=== PATIENT | female | born 1950 | race Caucasian/White ===

== ENCOUNTER 2017-06-02 08:29 | Outpatient (CLI) | payer OTHER | END 2017-06-02 18:19 | disposition home or self-care (01) | LOC: SMA 08:29 | PROVIDERS: ATTEND Physician Assistant Medical | DX: N63.10 Unspecified lump in the right breast, unspecified quadrant (principal); N63.20 Unspecified lump in the left breast, unspecified quadrant | CPT/HCPCS: 76641; G0204 ==

== ENCOUNTER 2018-05-20 07:56 | Outpatient (CLI) | payer OTHER | END 2018-05-20 18:41 | disposition home or self-care (01) | LOC: SMA 07:56 | PROVIDERS: ATTEND Family Medicine | DX: R92.2 Inconclusive mammogram (principal); R92.8 Other abnormal and inconclusive findings on diagnostic imaging of breast | CPT/HCPCS: 76641; 77066 ==

== ENCOUNTER 2019-07-21 08:30 | Outpatient (CLI) | payer OTHER | END 2019-07-21 20:58 | disposition home or self-care (01) | LOC: SMA 08:30 | PROVIDERS: ATTEND Physician Assistant Medical | DX: R92.8 Other abnormal and inconclusive findings on diagnostic imaging of breast (principal) | CPT/HCPCS: 76641; 77066 ==

== ENCOUNTER 2021-03-19 08:05 | Outpatient (CLI) | payer OTHER | END 2021-03-19 19:36 | disposition home or self-care (01) | LOC: SMA 08:05 | PROVIDERS: ATTEND Family Medicine | DX: N63.24 Unspecified lump in the left breast, lower inner quadrant (principal); N60.02 Solitary cyst of left breast; R92.2 Inconclusive mammogram; R59.0 Localized enlarged lymph nodes | CPT/HCPCS: 76641; 77066 ==

== ENCOUNTER 2022-06-18 10:32 | Outpatient (CLI) | payer OTHER | END 2022-06-18 19:00 | disposition home or self-care (01) | LOC: SMA 10:32 | PROVIDERS: ATTEND Family Medicine | DX: Z12.31 Encounter for screening mammogram for malignant neoplasm of breast (principal); N60.01 Solitary cyst of right breast; N60.02 Solitary cyst of left breast | CPT/HCPCS: 76641; 77067 ==

== ENCOUNTER 2023-08-27 09:54 | Outpatient (CLI) | payer OTHER | END 2023-08-27 19:44 | disposition home or self-care (01) | LOC: SMA 09:54 | PROVIDERS: ATTEND Family Medicine | DX: Z12.31 Encounter for screening mammogram for malignant neoplasm of breast (principal) | CPT/HCPCS: 77067 ==